=== PATIENT | male | born 1950 ===

== ENCOUNTER → 2024-11-25 | Emergency (ER) | payer OTHER ==
[~2024-11-25] VITALS: Ht 177.8 cm; Wt 98.9 kg
[~2024-11-25] MED LIST: METFORMIN HCL500 M4 PO; PANTOPRAZOLE SODIUM 40 MG/VIAL VIAL IV PUSH STA
[2024-11-26 00:17] LABS: BASO % 0.5 % (0.1-1.2); EOS # 0.18 (0.04-0.54); EOS % 2.4 % (0.7-7.0); HEMATOCRIT 30.8 % (40.1-51.0); HEMOGLOBIN 9.9 g/dL (13.7-17.5); INR 1.19; LYMPH # 1.69 (1.18-3.74); LYMPH % 22.9 % (19.3-53.1); MEAN CORPUSCULAR HEMOGLOBIN 25.8 pg (25.6-32.2); MONO % 8.1 % (4.7-12.5); NEUT # 4.85 (1.56-6.13); NEUT % 65.7 % (34.0-71.1); PARTIAL THROMBOPLASTIN TIME 27.9 SECONDS (22.0-34.0); PLATELET COUNT 202 K/uL (163-369); PROTHROMBIN TIME 12.8 SECONDS (9.0-11.5); RED BLOOD COUNT 3.83 M/uL (4.63-6.08); RED CELL DISTRIBUTION WIDTH 19.4 % (11.6-14.4)
[2024-11-26 02:11] LABS: CALCIUM 9.6 mg/dL (8.5-10.1); CREATININE SERUM 0.8 mg/dL (0.70-1.30); GFR 94.76; POTASSIUM 3.84 mEq/L (3.5-5.1)
[2024-11-26 02:12] LABS: ALBUMIN 3.9 gm/dL (3.4-5.0); BILIRUBIN TOTAL 0.34 mg/dL (0.3-1.2); GLOBULINA 4.1 G/DL (2.4-3.5)
== END | disposition left against medical advice (07) ==
LOC: ER 21:46
PROVIDERS: General Practice
DX: R11.0 Nausea (principal); R53.1 Weakness; E11.9 Type 2 diabetes mellitus without complications; Z88.0 Allergy status to penicillin
CPT/HCPCS: 36415; 96365; 99282; J3490